=== PATIENT | female | born 1985 | race Two or more races ===

== ENCOUNTER 2020-01-04 18:10 | Emergency (ER) | payer SELFPAY ==
[~2020-01-04] VITALS: Ht 165.1 cm; Wt 60.8 kg
[2020-01-04 20:41] VITALS: BP 143/88
== END 2020-01-04 21:45 | disposition home or self-care (01) ==
LOC: ER 18:10
DX: S80.01XA Contusion of right knee, initial encounter (principal); S81.852A Open bite, left lower leg, initial encounter; S81.851A Open bite, right lower leg, initial encounter; W54.0XXA Bitten by dog, initial encounter; Y93.89 Activity, other specified; Y92.89 Other specified places as the place of occurrence of the external cause; Y99.8 Other external cause status
CPT/HCPCS: 73562; 93971